=== PATIENT | female | born 1945 | race Caucasian/White ===

== ENCOUNTER 2022-10-22 13:28 | Outpatient (CLI) | payer MEDICARE | END 2022-10-22 13:29 | disposition home or self-care (01) | LOC: CSHCP 13:28 | PROVIDERS: ATTEND Radiology Radiation Oncology | DX: C34.11 Malignant neoplasm of upper lobe, right bronchus or lung (principal) | CPT/HCPCS: 94010; 94726; 94729; 94760 ==

== ENCOUNTER 2024-07-07 05:58 | Day surgery (SDC) | payer MEDICARE ==
[2024-07-06 13:46] VITALS: BMI 24.3
[2024-07-07] MEDS ORDERED: EPINEPHrine 1 MG/ML VIAL ONE (06:56)
[2024-07-07] MEDS ORDERED: Ondansetron PF 4 MG/2 ML Vial ONE (07:16)
[2024-07-07] MEDS ORDERED: PROPOFOL 20 ML ONE (07:16)
[2024-07-07] MEDS ORDERED: fentaNYL 50 mcg/mL 1 mL Vial ONE ×2 (07:16→07:44)
[2024-07-07] MEDS ORDERED: Dexamethasone 4 mg/ml Vial ONE (07:16)
[2024-07-07] MEDS ORDERED: Lidocaine 1% PF 5 ML VIAL ONE (07:16)
[2024-07-07] MEDS ORDERED: PHENYLEPHRINE-NS 100 MCG/ML 10 ML SYRINGE ONE (07:17)
[2024-07-07 07:18] LABS: Hematocrit 32.9 % (34.9-44.5); Hemoglobin 10.8 g/dL (12.0-15.5)
[2024-07-07 07:27] LABS: Anion Gap 17 mmol/L (10-20); BUN (Urea Nitrogen) 20 mg/dL (9.8-20.1); Calc. Creatinine Clearance 65 mL/min (70-130); Calcium 9.6 mg/dL (7.8-10.44); Carbon Dioxide 22 mmol/L (23-31); Chloride 101 mmol/L (98-107); Estimated GFR 71; Glucose 170 mg/dL (83-110); Sodium 136 mmol/L (136-145)
== END 2024-07-07 09:10 | disposition home or self-care (01) ==
LOC: CSHSDC 05:58
PROVIDERS: ATTEND Otolaryngology Plastic Surgery within the Head & Neck
PROC: 3E0F83Z Introduction of Anti-inflammatory into Respiratory Tract, Via Natural or Artificial Opening Endoscopic (ICD-10-PCS; principal; 2024-07-07)
DX: J38.01 Paralysis of vocal cords and larynx, unilateral (principal); R13.10 Dysphagia, unspecified; K13.21 Leukoplakia of oral mucosa, including tongue; J98.59 Other diseases of mediastinum, not elsewhere classified; C34.90 Malignant neoplasm of unspecified part of unspecified bronchus or lung; E78.00 Pure hypercholesterolemia, unspecified; M19.90 Unspecified osteoarthritis, unspecified site; E11.9 Type 2 diabetes mellitus without complications; Z79.899 Other long term (current) drug therapy; Z88.2 Allergy status to sulfonamides; Z88.8 Allergy status to other drugs, medicaments and biological substances; Z88.1 Allergy status to other antibiotic agents; Z91.040 Latex allergy status; Z85.118 Personal history of other malignant neoplasm of bronchus and lung
CPT/HCPCS: 31571; 80048; 85014; 85018; 93005; J0171; J1100; J2405; J2704; J3010; L8607; 93010

== ENCOUNTER 2024-09-06 23:38 | Emergency (ER) | payer MEDICARE ==
[2024-09-06] MEDS ORDERED: Morphine 4 MG/ML VIAL ONE (23:57)
[2024-09-06] MEDS ORDERED: Famotidine/PF 20 mg/2ml Vial ONE (23:58)
[2024-09-06] MEDS ORDERED: Ondansetron PF 4 MG/2 ML Vial ONE (23:58)
[2024-09-07 00:43] LABS: #Basophils 0.03 10x3/uL (0.0-0.2); #Eosinophils 0.12 10x3/uL (0.0-0.5); #Monocytes 0.39 10x3/uL (0.0-1.1); #Neutrophils 5.07 10x3/uL (1.5-8.4); %Basophils 0.5 % (0.0-2.0); %Eosinophils 1.9 % (0.0-6.0); %Lymphocytes 10.5 % (18.0-47.0); %Monocytes 6.2 % (0.0-10.0); %Neutrophils 80.7 % (40.0-75.0); Hematocrit 32.7 % (34.9-44.5); Hemoglobin 10.8 g/dL (12.0-15.5); Mean Corpuscular Hemoglobin 27.9 pg (27.0-33.0); Mean Corpuscular Volume 84.5 fL (81.6-98.3); Mean Platelet Volume 10.3 fL (7.4-10.4); Platelet Count 263 10x3/uL (150-450); RBC Distribution Width 15.4 % (11.5-14.5); Red Blood Cell (RBC) Count 3.87 10x6/uL (3.90-5.03); White Blood Cell (WBC) Count 6.3 10x3/uL (3.5-10.5)
[2024-09-07 00:51] LABS: INR-International Normal Ratio 1.1; PTT 27.7 sec (22.0-33.0); Prothrombin Time 11.5 sec (9.5-12.1)
[2024-09-07 00:53] LABS: ALT (SGPT) 18 U/L (8-55); AST (SGOT) 19 U/L (5-34); Albumin 3.5 g/dL (3.4-4.8); Alkaline Phosphatase 67 U/L (40-110); Anion Gap 17 mmol/L (10-20); BUN (Urea Nitrogen) 24 mg/dL (9.8-20.1); Bilirubin, Total 0.4 mg/dL (0.2-1.2); Calc. Creatinine Clearance 0 mL/min (70-130); Calcium 10.2 mg/dL (7.8-10.44); Carbon Dioxide 21 mmol/L (23-31); Chloride 96 mmol/L (98-107); Estimated GFR 76; Globulin 4.2 g/dL (2.4-3.5); Glucose 163 mg/dL (83-110); Lipase 44 U/L (8-78); Magnesium 1.6 mg/dL (1.6-2.6); Potassium 4.1 mmol/L (3.5-5.1); Protein, Total 7.7 g/dL (5.8-8.1); Sodium 130 mmol/L (136-145)
[2024-09-07 00:55] LABS: Troponin I Less than 0.010 ng/mL (< 0.028)
[2024-09-07] MEDS ORDERED: Morphine 4 MG/ML VIAL ONE (01:09)
[2024-09-07 05:00] LABS: Troponin I Less than 0.010 ng/mL (< 0.028)
== END 2024-09-07 05:03 | disposition home or self-care (01) ==
LOC: CSHERS 23:38
DX: R07.89 Other chest pain (principal); E11.9 Type 2 diabetes mellitus without complications; C34.91 Malignant neoplasm of unspecified part of right bronchus or lung; Z79.84 Long term (current) use of oral hypoglycemic drugs; Z79.899 Other long term (current) drug therapy
CPT/HCPCS: 71045; 71275; 80053; 83690; 83735; 83880; 84484; 85025; 85610; 85730; 87428; 93005; 96374; 96375; 96376; J2272; J2405; J3490

== ENCOUNTER 2025-08-03 14:54 | Outpatient (CLI) | payer MEDICARE | END 2025-08-03 14:55 | disposition home or self-care (01) | LOC: CSHMAMMO 14:54 | PROVIDERS: ATTEND Family Medicine | DX: N64.4 Mastodynia (principal) | CPT/HCPCS: 77066; G0279 ==